=== PATIENT | male | born 1970 | race Caucasian/White ===

== ENCOUNTER 2017-01-14 10:38 | Emergency (ER) | payer OTHER ==
[2017-01-14 10:57] VITALS: TEMP 99.1
[2017-01-14] MEDS ORDERED: HYDROmorphone 1 MG/ML 1 ML SYRINGE IVP STA (11:49)
[2017-01-14] MEDS ORDERED: RX INFO: IV CONTRAST WAS GIVEN 1 EACH MISC MISCELLANE PRN (11:49)
[2017-01-14] MEDS ORDERED: SODIUM CHLORIDE 0.9% 1,000 ML IV STA ×2 (11:49)
[2017-01-14] MEDS ORDERED: ONDANSETRON 4 MG/2 ML VIAL IVP STA (11:49)
--- NOTE | 2017-01-14 11:53 | ED ---
General Adult HPI - General Chief complaint: Abdominal Pain Stated complaint: PATIENT STATES KIDNEYS FAILING Time Seen by Provider: 01/14/17 11:28 Source: patient, family, RN notes reviewed Mode of arrival: wheelchair Limitations: no limitations - History of Present Illness Initial comments: Patient 46-year-old male who presents emergency room today with chief complaint of abdominal pain. Patient does admit that both sides of his abdomen are hurting. He states it's worse on the left than the right. human sensory or four days ago. Patient does admit to being a daily drinker. He states he stopped drinking had a alcohol withdrawal seizure. States he was taken to the [facility]. States he was admitted as stated for 4 days. He states he was discharged home yesterday. He states he was in a lot of pain with his abdomen. Patient does admit that his been using Librium which helps some with his symptoms. He does admit still experiencing pain on the sides of his abdomen with some pain from his back. States worse with movements. Patient does admit that he had a bowel movement yesterday which was dark in color. Patient denies any other complaints at this time. Patient denies any recent fever, chills, shortness of breath, chest pain, nausea or vomiting, numbness or tingling, dysuria or hematuria, constipation or diarrhea, headaches or visual changes, or any other complaints. - Related Data Home Medications Medication Instructions Recorded Confirmed QUEtiapine XR [SEROquel XR] 200 mg PO HS 01/14/17 01/14/17 chlordiazePOXIDE HCL 25 mg PO DIRECTED 01/14/17 01/14/17 Previous Rx's Medication Instructions Recorded Dicyclomine [Bentyl] 10 mg PO QID #20 capsule 01/14/17 Allergies Allergy/AdvReac Type Severity Reaction Status Date / Time No Known Allergies Allergy Verified 01/14/17 14:23 Review of Systems ROS Statement: Those systems with pertinent positive or pertinent negative responses have been documented in the HPI. ROS Other: All systems not noted in ROS Statement are negative. Past Medical History Additional Past Medical History / Comment(s): back pain, etoh abuse History of Any Multi-Drug Resistant Organisms: None Reported Past Surgical History: No Surgical Hx Reported Past Psychological History: Depression Smoking Status: Current every day smoker Past Alcohol Use History: Abuse, Daily, Heavy Past Drug Use History: None Reported General Exam - General Exam Comments Initial Comments: General: The patient is awake and alert, in no distress, and does not appear acutely ill. Eye: Pupils are equal, round and reactive to light, extra-ocular movements are intact. No nystagmus. There is normal conjunctiva bilaterally. No signs of icterus. Ears, nose, mouth and throat: There are moist mucous membranes and no oral lesions. Neck: The neck is supple, there is no tenderness or JVD. Cardiovascular: There is a regular rate and rhythm. No murmur, rub or gallop is appreciated. Respiratory: Lungs are clear to auscultation, respirations are non-labored, breath sounds are equal. No wheezes, stridor, rales, or rhonchi. Gastrointestinal: Normal bowel sounds. Soft on palpation. Patient does have tenderness to right and left upper and lower quadrants. No rebound tenderness. No guarding. Mild left-sided CVA tenderness. Musculoskeletal: Normal ROM, no tenderness. Strength 5/5. Sensation intact. Pulses equal bilaterally 2+. Neurological: A&O x 3. CN II-XII intact, There are no obvious motor or sensory deficits. Coordination appears grossly intact. Speech is normal. Skin: Skin is warm and dry and no rashes or lesions are noted. Psychiatric: Cooperative, appropriate mood & affect, normal judgment. Limitations: no limitations Course Vital Signs 01/14/17 01/14/17 01/14/17 10:51 12:47 13:33 Temperature 99.1 F Pulse Rate 103 H 77 81 Respiratory 18 18 16 Rate Blood Pressure 109/77 111/75 118/81 O2 Sat by Pulse 95 96 99 Oximetry Medical Decision Making - Medical Decision Making Patient reexamined at this time shows no signs of distress. Patient's reports from [facility] reviewed. He did have a CT of the head which was negative for any acute abnormality. Did have CAT scan of the chest which revealed fractures of T4, T6, T9, T11, T12. Patient does admit to a fall off a ladder several years ago his fractures occurred. Patient did see Dr. Hall at [facility]. He Was Admitted Because of A. fib with RVR. At This Time Patient Does Have Medications That He Was Discharged with. He Is Advised to Follow Back up with Dr. Hall over the next 2 days. His CAT scan today does show evidence for colitis. Urinalysis is negative for any abnormality. Patient will be discharged home prescription for Bentyl for his symptoms. Advised to follow-up over the next 2 days. Advised return for any other concerns. - Lab Data Result diagrams: 01/14/17 12:06 01/14/17 12:06 Lab Results 01/14/17 01/14/17 01/14/17 Range/Units 12:06 12:06 12:06 WBC 5.7 (3.8-10.6) k/uL RBC 5.15 (4.30-5.90) m/uL Hgb 14.1 (13.0-17.5) gm/dL Hct 43.0 (39.0-53.0) % MCV 83.5 (80.0-100.0) fL MCH 27.4 (25.0-35.0) pg MCHC 32.8 (31.0-37.0) g/dL RDW 17.9 H (11.5-15.5) % Plt Count 126 L (150-450) k/uL Neutrophils % 77 % Lymphocytes % 13 % Monocytes % 6 % Eosinophils % 2 % Basophils % 1 % Neutrophils # 4.4 (1.3-7.7) k/uL Lymphocytes # 0.7 L (1.0-4.8) k/uL Monocytes # 0.3 (0-1.0) k/uL Eosinophils # 0.1 (0-0.7) k/uL Basophils # 0.0 (0-0.2) k/uL Anisocytosis Slight Sodium 142 (137-145) mmol/L Potassium 4.1 (3.5-5.1) mmol/L Chloride 108 H (98-107) mmol/L Carbon Dioxide 25 (22-30) mmol/L Anion Gap 9 mmol/L BUN 7 L (9-20) mg/dL Creatinine 0.92 (0.66-1.25) mg/dL Est GFR (MDRD) Af Amer >60 (>60 ml/min/1.73 sqM) Est GFR (MDRD) Non-Af >60 (>60 ml/min/1.73 sqM) Glucose 104 H (74-99) mg/dL Plasma Lactic Acid Jaime 1.1 (0.7-2.0) mmol/L Calcium 9.6 (8.4-10.2) mg/dL Total Bilirubin 0.7 (0.2-1.3) mg/dL AST 35 (17-59) U/L ALT 33 (21-72) U/L Alkaline Phosphatase 66 (38-126) U/L Total Protein 7.1 (6.3-8.2) g/dL Albumin 4.0 (3.5-5.0) g/dL Amylase 118 H (30-110) U/L Lipase 317 H (23-300) U/L Urine Color Urine Appearance (Clear) Urine pH (5.0-8.0) Ur Specific [place] (1.001-1.035) Urine Protein (Negative) Urine Glucose (UA) (Negative) Urine Ketones (Negative) Urine Blood (Negative) Urine Nitrite (Negative) Urine Bilirubin (Negative) Urine Urobilinogen (<2.0) mg/dL Ur Leukocyte Esterase (Negative) 01/14/17 Range/Units 13:30 WBC (3.8-10.6) k/uL RBC (4.30-5.90) m/uL Hgb (13.0-17.5) gm/dL Hct (39.0-53.0) % MCV (80.0-100.0) fL MCH (25.0-35.0) pg MCHC (31.0-37.0) g/dL RDW (11.5-15.5) % Plt Count (150-450) k/uL Neutrophils % % Lymphocytes % % Monocytes % % Eosinophils % % Basophils % % Neutrophils # (1.3-7.7) k/uL Lymphocytes # (1.0-4.8) k/uL Monocytes # (0-1.0) k/uL Eosinophils # (0-0.7) k/uL Basophils # (0-0.2) k/uL Anisocytosis Sodium (137-145) mmol/L Potassium (3.5-5.1) mmol/L Chloride (98-107) mmol/L Carbon Dioxide (22-30) mmol/L Anion Gap mmol/L BUN (9-20) mg/dL Creatinine (0.66-1.25) mg/dL Est GFR (MDRD) Af Amer (>60 ml/min/1.73 sqM) Est GFR (MDRD) Non-Af (>60 ml/min/1.73 sqM) Glucose (74-99) mg/dL Plasma Lactic Acid Jaime (0.7-2.0) mmol/L Calcium (8.4-10.2) mg/dL Total Bilirubin (0.2-1.3) mg/dL AST (17-59) U/L ALT (21-72) U/L Alkaline Phosphatase (38-126) U/L Total Protein (6.3-8.2) g/dL Albumin (3.5-5.0) g/dL Amylase (30-110) U/L Lipase (23-300) U/L Urine Color Yellow Urine Appearance Clear (Clear) Urine pH 6.5 (5.0-8.0) Ur Specific [place] 1.035 (1.001-1.035) Urine Protein Trace H (Negative) Urine Glucose (UA) Negative (Negative) Urine Ketones Negative (Negative) Urine Blood Negative (Negative) Urine Nitrite Negative (Negative) Urine Bilirubin Negative (Negative) Urine Urobilinogen 2.0 (<2.0) mg/dL Ur Leukocyte Esterase Negative (Negative) Disposition Clinical Impression: Colitis Disposition: HOME SELF-CARE Condition: Good Instructions: Colitis (ED) Additional Instructions: Please use medication as discussed. Please follow-up with family doctor in the next 2 days. Please return to emergency room if the symptoms increase or worsen or for any other concerns. Prescriptions: Dicyclomine [Bentyl] 10 mg PO QID #20 capsule Referrals: None,Stated [Primary Care Provider] - 1-2 days Jc Hall MD [STAFF PHYSICIAN] - 1-2 days Time of Disposition: 14:34
[2017-01-14 12:22] LABS: Anisocytosis Slight; Basophils % (A) 1 %; CH 28.1; CHCM 33.8; Eosinophils # (A) 0.1 k/uL (0-0.7); Eosinophils % (A) 2 %; HDW 2.64; HGB 14.1 gm/dL (13.0-17.5); Luc # (Auto) 0.07; Luc % (Auto) 1; Lymphocytes # (A) 0.7 k/uL (1.0-4.8); Lymphocytes % (A) 13 %; MCH 27.4 pg (25.0-35.0); MCHC 32.8 g/dL (31.0-37.0); MCV 83.5 fL (80.0-100.0); Mean Platelet Volume 9.2; Monocytes # (A) 0.3 k/uL (0-1.0); Monocytes % (A) 6 %; Neutrophils # (A) 4.4 k/uL (1.3-7.7); Neutrophils % (A) 77 %; RBC 5.15 m/uL (4.30-5.90); RDW 17.9 % (11.5-15.5); WBC 5.7 k/uL (3.8-10.6); WBC (Perox) 5.19
[2017-01-14 12:32] LABS: ALT 33 U/L (21-72); AST 35 U/L (17-59); Alkaline Phosphatase 66 U/L (38-126); Amylase 118 U/L (30-110); Anion Gap 9 mmol/L; Blood Urea Nitrogen 7 mg/dL (9-20); Calcium 9.6 mg/dL (8.4-10.2); Carbon Dioxide 25 mmol/L (22-30); Chloride 108 mmol/L (98-107); Glucose 104 mg/dL (74-99); Non-African American GFR(MDRD) >60 (>60 ml/min/1.73 sqM); Potassium 4.1 mmol/L (3.5-5.1); Sodium 142 mmol/L (137-145); Total Bilirubin 0.7 mg/dL (0.2-1.3); Total Protein 7.1 g/dL (6.3-8.2)
--- NOTE | 2017-01-14 13:27 | CT ---
EXAMINATION TYPE: CT abdomen pelvis w con DATE OF EXAM: 01/14/2017 COMPARISON: NONE HISTORY: Abdominal pain not further specified per order. Bilateral flank pain CT DLP: 372 mGycm, Automated Exposure Control for Dose Reduction was Utilized. CONTRAST: CT scan of the abdomen and pelvis is performed without oral but with IV Contrast, patient injected wi th 100 mL of Omnipaque 300. FINDINGS: LUNG BASES: There are tiny bilateral pleural effusions. There is associated basilar linear atelectasi s and/or patchy right basilar consolidation. LIVER/GB: No significant abnormality is appreciated. PANCREAS: No significant abnormality is seen. SPLEEN: No significant abnormality is seen. ADRENALS: No significant abnormality is seen. KIDNEYS: There is 1 cm simple appearing cyst laterally mid pole level right kidney on image 32 series 5. Bladder is satisfactorily distended with wall thickness between 4 to 5 mm which is mildly thicken ed, a cystitis cannot be excluded in appropriate clinical setting. Clinical and lab correlation advis ed. No renal stones or hydronephrosis is evident bilaterally. There is symmetric cortical medullary u ptake and excretion seen. BOWEL: No suspicious small or large bowel dilatation is present. Normal-appearing appendix is seen in the right abdomen. There is mild wall thickening in the proximal sigmoid colon centered near axial i mage 67. A colitis at this level cannot be excluded. Clinical correlation advised finding could be pr oduct of poor distention. A few scattered pelvic phleboliths are seen. PROSTATE/SEMINAL VESICLES: Prostate gland is upper limits of normal in size.. LYMPH NODES: No greater than 1cm abdominal or pelvic lymph nodes are appreciated. OSSEOUS STRUCTURES: There is fairly moderate height loss at L1 vertebral body level. There is mild to moderate height loss at T9 vertebral body level. Both appear sclerotic suggesting chronic in age. OTHER: No significant additional abnormality is seen. IMPRESSION: 1. Attention to urinary bladder a cystitis cannot be excluded, clinical and lab correlation advised. 2. Possible mild proximal sigmoid colitis, differential includes infectious and inflammatory etiologi es. Clinical correlation advised. 3. Mild to moderate compression type fracture deformities at T9 and L1 vertebra suspected chronic in age.
[2017-01-14 13:35] VITALS: BP 118/81; PULSE 81; RESP 16
[2017-01-14 13:56] LABS: Appearance,Urine Clear (Clear); Bilirubin,Urine Negative (Negative); Glucose,Urine (UA) Negative (Negative); Ketones,Urine Negative (Negative); Leukocyte Esterase,Urine Negative (Negative); Nitrite,Urine Negative (Negative); PH, Urine 6.5 (5.0-8.0); Protein,Urine Trace (Negative); Specific Gravity,Urine 1.035 (1.001-1.035); UA Billing (MACRO vs. MICRO) CHEM
== END 2017-01-14 14:58 | disposition home or self-care (01) ==
LOC: EC 10:38
DX: K52.9 Noninfective gastroenteritis and colitis, unspecified (principal); F32.9 Major depressive disorder, single episode, unspecified; F10.10 Alcohol abuse, uncomplicated; F17.200 Nicotine dependence, unspecified, uncomplicated; Z79.899 Other long term (current) drug therapy
CPT/HCPCS: 99284; 96374; 96375; 96361 ×3; 36415; 80053; 82150; 83605; 83690; 85025; 81003; 74177; J2405; J1170; Q9967

== ENCOUNTER → 2017-11-16 | Outpatient (CLI) | payer OTHER ==
--- NOTE | 2017-11-16 14:09 | US ---
EXAMINATION TYPE: US thyroid st tissue head/neck DATE OF EXAM: 11/16/2017 COMPARISON: NONE CLINICAL HISTORY: 47-year-old male R22.1 Swelling, mass, or lump in head and neck. Left neck swelling /mass for a couple months. TECHNIQUE: Multiple sonographic images of the thyroid gland were obtained. The bilateral submandibula r regions were scanned, the left being the site of swelling. FINDINGS: GLAND SIZE: Right Lobe: 4.6 x 1.5 x 1.6 cm Overall Parenchyma: homogenous Left Lobe: 4.5 x 1.5 x 1.5 cm Overall Parenchyma: homogeneous Isthmus Thickness: 0.2 cm There is no discrete nodule. Bilateral neck scanned, no evidence of lymphadenopathy. Left neck submandibular: 3.1 x 1.8 x 4.8cm ovoid, circumscribed, hypoechoic non vascular structure wi th onion peel appearance seen at patient's area of concern located just below the submandibular gland and likely anterior to the sternocleidomastoid muscle. Right neck submandibular for comparison: appears wnl IMPRESSION: 1. At the site of patient's palpable abnormality, there is a circumscribed ovoid soft tissue mass sanchez suring 4.8 x 3.1 cm directly below the left submandibular gland likely anterior to the sternocleidoma stoid muscle. It has an onion peel appearance. Findings may represent an epidermoid or lipoma. Other etiologies not excluded especially if there has been growth. Consider surgical evaluation. 2. Normal appearance to the thyroid gland.
== END | disposition home or self-care (01) ==
LOC: RADUSWWP 13:12
PROVIDERS: ATTEND Internal Medicine
DX: R22.1 Localized swelling, mass and lump, neck (principal)
CPT/HCPCS: 76536

== ENCOUNTER 2019-12-19 18:13 | Inpatient (IN) | payer OTHER ==
[2019-12-19 18:51] LABS: Anisocytosis Slight; Basophils # (A) 0.1 k/uL (0-0.2); Basophils % (A) 1 %; Eosinophils # (A) 0.5 k/uL (0-0.7); Eosinophils % (A) 7 %; HGB 13.2 gm/dL (13.0-17.5); Lymphocytes # (A) 2.3 k/uL (1.0-4.8); Lymphocytes % (A) 31 %; MCH 26.2 pg (25.0-35.0); MCHC 30.8 g/dL (31.0-37.0); MCV 85.2 fL (80.0-100.0); Mean Platelet Volume 7.3; Monocytes # (A) 0.4 k/uL (0-1.0); Monocytes % (A) 6 %; Neutrophils % (A) 54 %; Platelet Count 237 k/uL (150-450); RBC 5.05 m/uL (4.30-5.90); RDW 16.3 % (11.5-15.5); WBC 7.4 k/uL (3.8-10.6)
[2019-12-19 18:59] LABS: INR 0.9 (<1.2); Partial Thromboplastin Time 22.6 sec (22.0-30.0); Prothrombin Time 9.8 sec (9.0-12.0)
--- NOTE | 2019-12-19 19:02 | ED ---
General Adult HPI - General Chief complaint: Extremity Problem,Nontraumatic Stated complaint: Blood clot Time Seen by Provider: 12/19/19 18:20 Source: patient Mode of arrival: ambulatory Limitations: no limitations - History of Present Illness Initial comments: Patient is a 49-year-old male with no past medical history who presents to the emergency room with reported lower externally swelling. He did see Dr. Hall in office for lower extremity edema. He was sent in for ultrasound and was found that he was positive for bilateral lower extremity DVTs. He was then transported to the emergency department. Dr. Hall does call and notify us of the patient's anticipated arrival. He states that he would like the patient evaluated and admitted under his service. Patient states that his pain has been going on for the past 3 weeks. He states that mildly Better and then got worse approximate one week ago. He went into [facility] where they gave him pain medication. States ultrasound was never performed. His symptoms persisted and therefore he saw his primary care physician today. Patient denies previous history of DVT or PE. No trauma to his lower externally. No family history of blood clotting disorders. Does not take any exogenous hormone. No recent travel or sedentary lifestyle. No recent surgeries. Eyes chest pain or camila rtness of breath. No other alleviating, precipitating or modifying factors - Related Data Previous Rx's Medication Instructions Recorded Apixaban [Eliquis Starter Pack 0 mg PO DIRECTED 30 Days #1 pack 12/20/19 (for VTE)] Allergies Allergy/AdvReac Type Severity Reaction Status Date / Time No Known Allergies Allergy Verified 12/19/19 19:23 Review of Systems ROS Statement: Those systems with pertinent positive or pertinent negative responses have been documented in the HPI. ROS Other: All systems not noted in ROS Statement are negative. Past Medical History Additional Past Medical History / Comment(s): back pain, etoh abuse History of Any Multi-Drug Resistant Organisms: None Reported Past Surgical History: No Surgical Hx Reported Past Psychological History: Depression Smoking Status: Current every day smoker Past Alcohol Use History: Abuse, Daily, Heavy Past Drug Use History: None Reported - Past Family History Father Family Medical History: No Reported History (Father is 69 year old with no health issues.) Mother Family Medical History: COPD (Mother at the age of 67 from COPD) Brother(s) Family Medical History: Cancer (patient has 3 brothers one at the age of 51 from some sort of cancer he did not recall.) Sister(s) Family Medical History: No Reported History (patient has 3 sisters with nohealth issues.) Son(s) Family Medical History: No Reported History (Patient has 6 sons no major medical issues.) Daughter(s) Family Medical History: No Reported History (patient has 6 daughters with no major medical issues.) General Exam Limitations: no limitations General appearance: alert, in no apparent distress Head exam: Present: atraumatic, normocephalic, normal inspection Eye exam: Present: normal appearance, PERRL, EOMI. Absent: scleral icterus, conjunctival injection, periorbital swelling ENT exam: Present: normal exam, mucous membranes moist Neck exam: Present: normal inspection. Absent: tenderness, meningismus, lymphadenopathy Respiratory exam: Present: normal lung sounds bilaterally. Absent: respiratory distress, wheezes, rales, rhonchi, stridor Cardiovascular Exam: Present: regular rate, normal rhythm, normal heart sounds. Absent: systolic murmur, diastolic murmur, rubs, gallop, clicks GI/Abdominal exam: Present: soft, normal bowel sounds. Absent: distended, tenderness, guarding, rebound, rigid Extremities exam: Present: normal inspection, full ROM, normal capillary refill, pedal edema (bilateral lower extremity swelling). Absent: tenderness, joint swelling, calf tenderness Back exam: Present: normal inspection Neurological exam: Present: alert, oriented X3, CN II-XII intact Psychiatric exam: Present: normal affect, normal mood Skin exam: Present: warm, dry, intact, normal color. Absent: rash Course Vital Signs 12/19/19 12/19/19 18:20 19:35 Temperature 98.0 F 97.9 F Pulse Rate 79 76 Respiratory 18 19 Rate Blood Pressure 115/80 103/66 O2 Sat by Pulse 99 97 Oximetry Medical Decision Making - Medical Decision Making Upon arrival the patient was placed into room 10. A thorough history and physical exam was performed. I did review the patient's ultrasound which demonstrates bilateral lower extremity DVTs. Patient has no contra indications to heparinization. Laboratory studies are conducted and are negative. Patient does not have any chest pain or shortness of breath. Patient will be admitted on heparin drip. He was then transported to the floor in stable condition - Lab Data Result diagrams: 12/21/19 06:47 12/20/19 06:55 Lab Results 12/19/19 12/19/19 12/19/19 Range/Units 18:41 18:41 18:41 WBC 7.4 (3.8-10.6) k/uL RBC 5.05 (4.30-5.90) m/uL Hgb 13.2 (13.0-17.5) gm/dL Hct 43.0 (39.0-53.0) % MCV 85.2 (80.0-100.0) fL MCH 26.2 (25.0-35.0) pg MCHC 30.8 L (31.0-37.0) g/dL RDW 16.3 H (11.5-15.5) % Plt Count 237 (150-450) k/uL Neutrophils % 54 % Lymphocytes % 31 % Monocytes % 6 % Eosinophils % 7 % Basophils % 1 % Neutrophils # 4.0 (1.3-7.7) k/uL Lymphocytes # 2.3 (1.0-4.8) k/uL Monocytes # 0.4 (0-1.0) k/uL Eosinophils # 0.5 (0-0.7) k/uL Basophils # 0.1 (0-0.2) k/uL Anisocytosis Slight PT 9.8 (9.0-12.0) sec INR 0.9 (<1.2) APTT 22.6 (22.0-30.0) sec Sodium 141 (137-145) mmol/L Potassium 4.4 (3.5-5.1) mmol/L Chloride 106 (98-107) mmol/L Carbon Dioxide 25 (22-30) mmol/L Anion Gap 10 mmol/L BUN 7 L (9-20) mg/dL Creatinine 0.75 (0.66-1.25) mg/dL Est GFR (CKD-EPI)AfAm >90 (>60 ml/min/1.73 sqM) Est GFR (CKD-EPI)NonAf >90 (>60 ml/min/1.73 sqM) Glucose 76 (74-99) mg/dL Calcium 9.0 (8.4-10.2) mg/dL Total Bilirubin 0.6 (0.2-1.3) mg/dL AST 32 (17-59) U/L ALT 11 (4-49) U/L Alkaline Phosphatase 75 (38-126) U/L Troponin I (0.000-0.034) ng/mL NT-Pro-B Natriuret Pep pg/mL Total Protein 7.2 (6.3-8.2) g/dL Albumin 4.1 (3.5-5.0) g/dL 12/19/19 12/19/19 Range/Units 18:41 18:41 WBC (3.8-10.6) k/uL RBC (4.30-5.90) m/uL Hgb (13.0-17.5) gm/dL Hct (39.0-53.0) % MCV (80.0-100.0) fL MCH (25.0-35.0) pg MCHC (31.0-37.0) g/dL RDW (11.5-15.5) % Plt Count (150-450) k/uL Neutrophils % % Lymphocytes % % Monocytes % % Eosinophils % % Basophils % % Neutrophils # (1.3-7.7) k/uL Lymphocytes # (1.0-4.8) k/uL Monocytes # (0-1.0) k/uL Eosinophils # (0-0.7) k/uL Basophils # (0-0.2) k/uL Anisocytosis PT (9.0-12.0) sec INR (<1.2) APTT (22.0-30.0) sec Sodium (137-145) mmol/L Potassium (3.5-5.1) mmol/L Chloride (98-107) mmol/L Carbon Dioxide (22-30) mmol/L Anion Gap mmol/L BUN (9-20) mg/dL Creatinine (0.66-1.25) mg/dL Est GFR (CKD-EPI)AfAm (>60 ml/min/1.73 sqM) Est GFR (CKD-EPI)NonAf (>60 ml/min/1.73 sqM) Glucose (74-99) mg/dL Calcium (8.4-10.2) mg/dL Total Bilirubin (0.2-1.3) mg/dL AST (17-59) U/L ALT (4-49) U/L Alkaline Phosphatase (38-126) U/L Troponin I <0.012 (0.000-0.034) ng/mL NT-Pro-B Natriuret Pep 38 pg/mL Total Protein (6.3-8.2) g/dL Albumin (3.5-5.0) g/dL - EKG Data EKG Comments: EKG demonstrates normal sinus rhythm with a ventricular rate of 73. PA interval 144. QRS into. QTC of 431. J-point elevation in 2, 3, aVF as well as V4 through V6. No reciprocal depression Critical Care Time Critical Care Time: Yes Critical Care Time: 32 minutes Disposition Clinical Impression: Bilateral edema of lower extremity, Acute DVT (deep venous thrombosis) Disposition: ADMITTED IP TO THIS HOSP Condition: Good Is patient prescribed a controlled substance at d/c from ED?: No Decision to Admit Reason: Admit from EC Decision Date: 12/19/19 Decision Time: 19:05
[2019-12-19 19:04] LABS: ALT 11 U/L (4-49); AST 32 U/L (17-59); African American GFR (CKD) >90 (>60 ml/min/1.73 sqM); Albumin 4.1 g/dL (3.5-5.0); Alkaline Phosphatase 75 U/L (38-126); Anion Gap 10 mmol/L; Blood Urea Nitrogen 7 mg/dL (9-20); Carbon Dioxide 25 mmol/L (22-30); Chloride 106 mmol/L (98-107); Glucose 76 mg/dL (74-99); Non-African American GFR(CKD) >90 (>60 ml/min/1.73 sqM); Sodium 141 mmol/L (137-145); Total Bilirubin 0.6 mg/dL (0.2-1.3); Total Protein 7.2 g/dL (6.3-8.2)
[2019-12-19] MEDS ORDERED: HEPARIN SODIUM,PORCINE 5,000 UNIT/ML 1 ML VIAL IV PRN (19:04)
[2019-12-19] MEDS ORDERED: HEPARIN SODIUM,PORCINE 10,000 UNIT/ML 1 ML VIAL IV ONE (19:04)
[2019-12-19] MEDS ORDERED: NALOXONE 0.4 MG/ML 1 ML VIAL IV PRN (19:06)
[2019-12-19 19:20] LABS: Potassium 4.4 mmol/L (3.5-5.1)
[2019-12-19] MEDS: HEPARIN SOD,PORK IN 0.45% NACL 25,000 UNIT in 0.45% NACL 1 250ML.BAG IV SCH (19:33)
[2019-12-20] MEDS ORDERED: ONDANSETRON 4 MG/2 ML VIAL IVP PRN (05:38)
[2019-12-20 07:35] LABS: Basophils % (A) 1 %; Eosinophils # (A) 0.5 k/uL (0-0.7); Eosinophils % (A) 8 %; HCT 41.7 % (39.0-53.0); HGB 13.1 gm/dL (13.0-17.5); Hypochromasia Slight; Lymphocytes % (A) 32 %; MCH 27.1 pg (25.0-35.0); MCHC 31.4 g/dL (31.0-37.0); MCV 86.4 fL (80.0-100.0); Mean Platelet Volume 7.7; Monocytes # (A) 0.3 k/uL (0-1.0); Monocytes % (A) 5 %; Neutrophils # (A) 3.4 k/uL (1.3-7.7); Neutrophils % (A) 53 %; Platelet Count 238 k/uL (150-450); RBC 4.83 m/uL (4.30-5.90); RDW 15.9 % (11.5-15.5); WBC 6.3 k/uL (3.8-10.6)
[2019-12-20 07:40] LABS: INR 0.9 (<1.2); Partial Thromboplastin Time 62.7 sec (22.0-30.0); Prothrombin Time 9.9 sec (9.0-12.0)
[2019-12-20 07:53] LABS: African American GFR (CKD) >90 (>60 ml/min/1.73 sqM); Anion Gap 5 mmol/L; Blood Urea Nitrogen 9 mg/dL (9-20); Calcium 8.9 mg/dL (8.4-10.2); Carbon Dioxide 24 mmol/L (22-30); Chloride 112 mmol/L (98-107); Glucose 84 mg/dL (74-99); Non-African American GFR(CKD) >90 (>60 ml/min/1.73 sqM); Potassium 4.4 mmol/L (3.5-5.1); Sodium 141 mmol/L (137-145)
[2019-12-20] MEDS: PANTOPRAZOLE 40 MG TABLET PO SCH (08:18)
--- NOTE | 2019-12-20 12:46 | P.GSCN ---
History of Present Illness History of present illness: 49-year-old -[place] male who is been admitted with diagnoses of bilateral deep vein thrombosis. Patient had ultrasound shows right femoral popliteal DVT and left popliteal DVT no history of chest pain or shortness of breath no history of trauma no previous hx of DVT. No history of diabetes hypertension coronary artery disease Neck examination neck is supple no bruit appreciated Next Abdomen soft nontender Vascular examination femorals are palpable dorsal pedis not palpable bilateral patient has a mild swelling of the extremity no evidence of vascular compromise Ultrasound showed DVT of the right fem-pop on the right side left side left popliteal DVT Plan is patient is on heparin will be continued and patient will go home on oral anticoagulation. Patient will be seen in my office in 2 weeks with ultrasound follow with you thank you Past Medical History Additional Past Medical History / Comment(s): back pain, etoh abuse, Hepatitis B, Tobacco use. History of Any Multi-Drug Resistant Organisms: None Reported Past Surgical History: No Surgical Hx Reported Past Anesthesia/Blood Transfusion Reactions: No Reported Reaction Past Psychological History: Depression Smoking Status: Current every day smoker (Patient smokes 1/2PPD for many years.) Past Alcohol Use History: Abuse, Daily, Heavy (Patient drinks 4-6 beer a day but currently has a tether for DUI and not drinking.) Past Drug Use History: None Reported - Past Family History Father Family Medical History: No Reported History (Father is 69 year old with no health issues.) Mother Family Medical History: COPD (Mother at the age of 67 from COPD) Brother(s) Family Medical History: Cancer (patient has 3 brothers one at the age of 51 from some sort of cancer he did not recall.) Sister(s) Family Medical History: No Reported History (patient has 3 sisters with nohealth issues.) Son(s) Family Medical History: No Reported History (Patient has 6 sons no major medical issues.) Daughter(s) Family Medical History: No Reported History (patient has 6 daughters with no major medical issues.) Medications and Allergies Home Medications Medication Instructions Recorded Confirmed Type Apixaban [Eliquis Starter Pack 0 mg PO DIRECTED 30 Days #1 pack 12/20/19 Rx (for VTE)] Allergies Allergy/AdvReac Type Severity Reaction Status Date / Time No Known Allergies Allergy Verified 12/19/19 19:23 Surgical - Exam Vital Signs Temp Pulse Resp BP Pulse Ox 98.0 F 79 18 115/80 99 12/19/19 18:20 12/19/19 18:20 12/19/19 18:20 12/19/19 18:20 12/19/19 18:20 Results - Labs 12/20/19 06:55 12/20/19 06:55 Abnormal Lab Results - Last 24 Hours (Table) 12/19/19 12/19/19 12/20/19 Range/Units 18:41 18:41 00:49 MCHC 30.8 L (31.0-37.0) g/dL RDW 16.3 H (11.5-15.5) % APTT 84.7 H (22.0-30.0) sec Chloride (98-107) mmol/L BUN 7 L (9-20) mg/dL 12/20/19 12/20/19 12/20/19 Range/Units 06:55 06:55 06:55 MCHC (31.0-37.0) g/dL RDW 15.9 H (11.5-15.5) % APTT 62.7 H (22.0-30.0) sec Chloride 112 H (98-107) mmol/L BUN (9-20) mg/dL Diabetes panel 12/19/19 12/20/19 Range/Units 18:41 06:55 Sodium 141 141 (137-145) mmol/L Potassium 4.4 4.4 (3.5-5.1) mmol/L Chloride 106 112 H (98-107) mmol/L Carbon Dioxide 25 24 (22-30) mmol/L BUN 7 L 9 (9-20) mg/dL Creatinine 0.75 0.81 (0.66-1.25) mg/dL Glucose 76 84 (74-99) mg/dL Calcium 9.0 8.9 (8.4-10.2) mg/dL AST 32 (17-59) U/L ALT 11 (4-49) U/L Alkaline Phosphatase 75 (38-126) U/L Total Protein 7.2 (6.3-8.2) g/dL Albumin 4.1 (3.5-5.0) g/dL Calcium panel 12/19/19 12/20/19 Range/Units 18:41 06:55 Calcium 9.0 8.9 (8.4-10.2) mg/dL Albumin 4.1 (3.5-5.0) g/dL Pituitary panel 12/19/19 12/20/19 Range/Units 18:41 06:55 Sodium 141 141 (137-145) mmol/L Potassium 4.4 4.4 (3.5-5.1) mmol/L Chloride 106 112 H (98-107) mmol/L Carbon Dioxide 25 24 (22-30) mmol/L BUN 7 L 9 (9-20) mg/dL Creatinine 0.75 0.81 (0.66-1.25) mg/dL Glucose 76 84 (74-99) mg/dL Calcium 9.0 8.9 (8.4-10.2) mg/dL Adrenal panel 12/19/19 12/20/19 Range/Units 18:41 06:55 Sodium 141 141 (137-145) mmol/L Potassium 4.4 4.4 (3.5-5.1) mmol/L Chloride 106 112 H (98-107) mmol/L Carbon Dioxide 25 24 (22-30) mmol/L BUN 7 L 9 (9-20) mg/dL Creatinine 0.75 0.81 (0.66-1.25) mg/dL Glucose 76 84 (74-99) mg/dL Calcium 9.0 8.9 (8.4-10.2) mg/dL Total Bilirubin 0.6 (0.2-1.3) mg/dL AST 32 (17-59) U/L ALT 11 (4-49) U/L Alkaline Phosphatase 75 (38-126) U/L Total Protein 7.2 (6.3-8.2) g/dL Albumin 4.1 (3.5-5.0) g/dL
[2019-12-20] MEDS: HEPARIN SOD,PORK IN 0.45% NACL 25,000 UNIT in 0.45% NACL 1 250ML.BAG IV SCH (18:10)
[2019-12-20 21:44] VITALS: RESP 16
[2019-12-21 06:27] VITALS: BP 107/70; PULSE 62; TEMP 98.2
[2019-12-21 07:06] LABS: Anisocytosis Slight; Basophils % (A) 1 %; Eosinophils # (A) 0.3 k/uL (0-0.7); Eosinophils % (A) 5 %; HCT 43.3 % (39.0-53.0); HGB 13.4 gm/dL (13.0-17.5); Lymphocytes # (A) 2.3 k/uL (1.0-4.8); Lymphocytes % (A) 33 %; MCH 26.3 pg (25.0-35.0); MCHC 30.9 g/dL (31.0-37.0); Monocytes # (A) 0.4 k/uL (0-1.0); Monocytes % (A) 6 %; Neutrophils # (A) 3.7 k/uL (1.3-7.7); Neutrophils % (A) 53 %; Platelet Count 223 k/uL (150-450); RBC 5.09 m/uL (4.30-5.90); RDW 16.3 % (11.5-15.5)
[2019-12-21 07:15] LABS: Prothrombin Time 10.1 sec (9.0-12.0)
[2019-12-21] MEDS: PANTOPRAZOLE 40 MG TABLET PO SCH (08:47)
--- NOTE | 2019-12-21 09:35 | P.HPIM ---
History of Present Illness H&P Date: 12/20/19 Chief Complaint: Bilateral Lower extremity DVT. This is a 49 year old Male who I saw yesterday in my office for the first time for evaluation of increased swelling in both lower extremities and increased tenderness for the past 3 weeks, he stated the pain got better for a while then worse with increased swelling in the past week or so, he has prior history of hepatitis B for which he was treated according to him in with shot and a pill, also history of alcohol abuse with DUI currently have a tether for that, and he thought that the swelling is caused by the tether, he reoprted tobacco use and no drug use or abuse, he was complaining of submandibular swelling for which he wanted to sse an ENT for possible excision , it is appear that it may be hypoglossal cyst. Review of Systems Constitutional: Denies anorexia, Denies chronic headaches, Denies lethargy, Denies sweats, Denies weakness Eyes: denies blurred vision, denies bulging eye, denies decreased vision Ears, nose, mouth and throat: Denies dysphagia, Denies neck lump, Denies sore throat Cardiovascular: Denies chest pain, Denies claudication, Denies decreased exercise tolerance, Denies lightheadedness, Denies rapid heart beat, Denies shortness of breath, Denies syncope Respiratory: Denies congestion, Denies cough, Denies cough with sputum, Denies home oxygen, Denies sleep apnea, Denies snoring, Denies wheezing Gastrointestinal: Denies abdominal pain, Denies bloating, Denies BRBPR, Denies excessive gas, Denies heartburn, Denies hematemesis, Denies hematochezia, Denies jaundice, Denies loss of appetite, Denies melena, Denies nausea, Denies vomiting Genitourinary: Denies dysuria, Denies incontinence, Denies nocturia Musculoskeletal: Denies myalgias Musculoskeletal: bilateral: ankle swelling, absent: ankle pain, ankle stiffness, as per HPI, elbow pain, elbow stiffness, elbow swelling, foot pain, foot stiffness, foot swelling, hand pain, hand stiffness, hand swelling, hip pain, hip stiffness, hip swelling, knee pain, knee stiffness, knee swelling, shoulder pain, shoulder stiffness, shoulder swelling, wrist pain, wrist stiffness, wrist swelling Integumentary: Denies pruritus, Denies rash Neurological: Denies numbness, Denies weakness Psychiatric: Denies anxiety, Denies depression Endocrine: Denies fatigue, Denies weight change Past Medical History Additional Past Medical History / Comment(s): back pain, etoh abuse, Hepatitis B, Tobacco use. History of Any Multi-Drug Resistant Organisms: None Reported Past Surgical History: No Surgical Hx Reported Past Anesthesia/Blood Transfusion Reactions: No Reported Reaction Past Psychological History: Depression Smoking Status: Current every day smoker (Patient smokes 1/2PPD for many years.) Past Alcohol Use History: Abuse, Daily, Heavy (Patient drinks 4-6 beer a day but currently has a tether for DUI and not drinking.) Past Drug Use History: None Reported - Past Family History Father Family Medical History: No Reported History (Father is 69 year old with no health issues.) Mother Family Medical History: COPD (Mother at the age of 67 from COPD) Brother(s) Family Medical History: Cancer (patient has 3 brothers one at the age of 51 from some sort of cancer he did not recall.) Sister(s) Family Medical History: No Reported History (patient has 3 sisters with nohealth issues.) Son(s) Family Medical History: No Reported History (Patient has 6 sons no major medical issues.) Daughter(s) Family Medical History: No Reported History (patient has 6 daughters with no major medical issues.) Medications and Allergies Home Medications Medication Instructions Recorded Confirmed Type Apixaban [Eliquis Starter Pack 0 mg PO DIRECTED 30 Days #1 pack 12/20/19 Rx (for VTE)] Allergies Allergy/AdvReac Type Severity Reaction Status Date / Time No Known Allergies Allergy Verified 12/19/19 19:23 Physical Exam Vitals: Vital Signs Temp Pulse Pulse Resp BP BP Pulse Ox 12/20/19 00:20 14 12/19/19 20:13 98.8 F 84 14 98/62 95 12/19/19 20:05 14 12/19/19 19:35 97.9 F 76 19 103/66 97 12/19/19 18:20 98.0 F 79 18 115/80 99 Intake and Output 12/19/19 12/19/19 12/20/19 14:59 22:59 06:59 Intake Total 300 75.296 Balance 300 75.296 Intake: Intake, IV Titration 75.296 Amount Heparin Sod,Pork in 0.45% 75.296 NaCl 25,000 unit In 0.45 % NaCl 1 250ml.bag @ 18 UNITS/KG/HR 12.982 mls/hr IV .[id number] [facility] Rx#: [id number] Oral 300 Other: Voiding Method Toilet Toilet Urinal Urinal # Voids 1 1 Weight 72.121 kg Physical examination: HEENT: head is atraumatic normocephalic pupils were equal round reactive to light and accommodation, extra ocular muscle movement were intact. Neck : supple, no JVP there is a submandibular swelling suggestie of possible hypoglossal cyst. Chest: decrease breath sounds at the bases with few ronchi and minimal expiratory wheezes, there is no chest wall tenderness or intercostal retraction. Heart: first heart sound is depressed, second heart sound is normal there is MC 2/6 located at the LSB. Abdomen: soft non tender non distended positive bowel sounds. Extremities: there + 2 edema with calf tenderness positive Chai's sign, DP + 1 bilaterally. Neurologic examination: patient is awake, alert and oriented X 3 CN II- XII are grossly intact, Results CBC & Chem 7: 12/21/19 06:47 12/20/19 06:55 Labs: Abnormal Lab Results - Last 24 Hours (Table) 12/19/19 12/19/19 12/20/19 Range/Units 18:41 18:41 00:49 MCHC 30.8 L (31.0-37.0) g/dL RDW 16.3 H (11.5-15.5) % APTT 84.7 H (22.0-30.0) sec BUN 7 L (9-20) mg/dL Thrombosis Risk Factor Assmnt - DVT/VTE Prophylaxis DVT/VTE Prophylaxis: Pharmacologic Prophylaxis ordered - Choose All That Apply Any of the Below Risk Factors Present?: Yes Each Factor Represents 1 point: Age 41-60 years, Swollen legs (current) Other Risk Factors: Yes Each Risk Factor Represents 3 Points: History of DVT/PE Thrombosis Risk Factor Assessment Total Risk Factor Score: 5 Thrombosis Risk Factor Assessment Level: High Risk Assessment and Plan Assessment: Assessment and plan: 1. Acute bilateral DVT of both lower extremities with right mid femoral to polpliteal veins and left [id number] left mid popliteal vein. we will start heparin drip x 2 days then will transition into Eliquis 10 mg orally bid for 1 week then 5 mg orally bid for 6 months, vascular surgery consult . 2. Bilateral lower extremity swelling. likely due to bilateral DVT. 3. Hypoglossal cyst .we will need to follow up with ENT after completion of the treatment of DVT. 4. chronc tobacco use and dependence. smoking cessation and counseling and increased the risk for CAD, CVA and malignancy. 5. Chronic alcohol use. currently has a tether for [facility]. abstinence from alcohol. 6.History of hepatitis B . post treatment, labs were done as outpatient and showed that he is immune against Hep B with positive HepB S Ab and positive Hep B core Ab and negative HepBcAb IgM. 7. GI Prophylaxis. we will start omeprazole 20 mg orally daily. 8. Admit to inpatient, estimated length of stay 2 midnights. 9. Full code.
--- NOTE | 2019-12-21 09:37 | P.DS ---
Providers Date of admission: 12/19/19 19:09 Expected date of discharge: 12/21/19 Attending physician: Jc Hall Consults: 12/20/19 05:37 Consult Physician Routine Consulting Provider: Joel Cardenas Consult Reason/Comments: Bilateral DVT Do you want consulting provider notified?: Yes Primary care physician: Jc Hall [facility] Course: This is a 49 year old Male who I saw yesterday in my office for the first time for evaluation of increased swelling in both lower extremities and increased tenderness for the past 3 weeks, he stated the pain got better for a while then worse with increased swelling in the past week or so, he has prior history of hepatitis B for which he was treated according to him in with shot and a pill, also history of alcohol abuse with DUI currently have a tether for that, and he thought that the swelling is caused by the tether, he reoprted tobacco use and no drug use or abuse, he was complaining of submandibular swelling for which he wanted to sse an ENT for possible excision , it is appear that it may be hypoglossal cyst. Patient's pain a lot better today I reviewed his ultrasound of both lower extremities with him and with vascular surgery and he is going to follow-up with him as an outpatient in one week and he is going to follow-up with me as an outpatient one week, we will start the patient on Eliquis 10 mg orally twice every day for one week then 5 mg orally twice every day for the next 3-6 months, patient was instructed not to drink any alcohol not to take any anti- inflammatory medicine including ibuprofen Aleve to avoid the risk of bleeding. Discharge diagnoses: 1. Bilateral lower extremity DVT. 2. Bilateral lower extremity edema due to DVT. 3. Chronic tobacco use and dependence. 4. Chronic alcohol use and dependence . 5. Prior history of hepatitis B currently immune. Patient Condition at Discharge: Good Plan - Discharge Summary Discharge Rx Participant: No New Discharge Prescriptions: New Apixaban [Eliquis Starter Pack (for VTE)] 0 mg PO DIRECTED 30 Days #1 pack Discharge Medication List Apixaban [Eliquis Starter Pack (for VTE)] 0 mg PO DIRECTED 30 Days #1 pack 12/20/19 [Rx] Follow up Appointment(s)/Referral(s): Jc Hall MD [Primary Care Provider] - 1 Week (Patient to make own follow-up appt. Office closed at time of discharge. ) Joel Cardenas MD [STAFF PHYSICIAN] - 2 Weeks (Patient to call for own appt. Office closed at time of discharge. ) Patient Instructions/Handouts: Apixaban (By mouth), Deep Vein Thrombosis (DC) Activity/Diet/Wound Care/Special Instructions: script for [facility]itt[facility] in [facility] [facility] [employer] - have it delivered before the pt is d/c. Discharge Disposition: HOME SELF-CARE
[2019-12-21] MEDS ORDERED: APIXABAN 5 MG TAB PO SCH ×2 (10:00→21:00)
[2019-12-21] MEDS: HEPARIN SOD,PORK IN 0.45% NACL 25,000 UNIT in 0.45% NACL 1 250ML.BAG IV SCH (11:13)
== END 2019-12-21 11:20 | disposition home or self-care (01) | DRG 301 ==
LOC: EC 18:13 → 5NMEDONC 19:09
PROVIDERS: ADMIT Internal Medicine; ATTEND Internal Medicine
DX: I82.433 Acute embolism and thrombosis of popliteal vein, bilateral (principal); I82.411 Acute embolism and thrombosis of right femoral vein; F17.210 Nicotine dependence, cigarettes, uncomplicated; F32.9 Major depressive disorder, single episode, unspecified; K09.8 Other cysts of oral region, not elsewhere classified; Z79.01 Long term (current) use of anticoagulants; Z82.5 Family history of asthma and other chronic lower respiratory diseases; Z80.9 Family history of malignant neoplasm, unspecified
CPT/HCPCS: 36415; 80048; 80053; 80061; 80074; 83036; 83880; 84443; 84484; 85025; 85610; 85730; 86704; 86705; 86706; 86707; 87340; 87350; 87390; 93005; 93970; 96374; 99284

== ENCOUNTER → 2019-12-19 | Outpatient (CLI) | payer OTHER ==
--- NOTE | 2019-12-19 19:01 | US ---
EXAMINATION TYPE: US venous doppler duplex LE DATE OF EXAM: 12/19/2019 6:05 PM COMPARISON: NONE CLINICAL HISTORY: R60.0. Leg swelling SIDE PERFORMED: Bilateral TECHNIQUE: The lower extremity deep venous system is examined utilizing real time linear array sonog luna with graded compression, doppler sonography and color-flow sonography. VESSELS IMAGED: External Iliac Vein (EIV) Common Femoral Vein Deep Femoral Vein Greater Saphenous Vein * Femoral Vein Popliteal Vein Small Saphenous Vein * Proximal Calf Veins (* superficial vessels) DESCRIPTION: Grayscale, color doppler, spectral doppler imaging performed of the deep veins of the lower extremiti es. There is normal flow, compressibility, vascular waveforms. IMPRESSION: 1. RIGHT LOWER EXTREMITY: POSITIVE FOR OCCLUSIVE DVT, MID FEMORAL VEIN TO POPLITEAL VEINS. 2. LEFT LOWER EXTREMITY: POSITIVE FOR PREOCCLUSIVE DVT, WITHIN LEFT POPLITEAL VEIN. Note: Results called to Dr. Hall at time of exam, pt sent to ER.
== END | disposition home or self-care (01) ==
LOC: RADPROWWP 17:43
PROVIDERS: ATTEND Internal Medicine
DX: R60.0 Localized edema (principal)
CPT/HCPCS: 93970